=== PATIENT | female | born 1995 ===

== ENCOUNTER 2018-06-24 12:30 | Emergency (ER) | payer MEDICAID, OTHER ==
[2018-06-24 12:31] VITALS: BMI 36.8
[2018-06-24 12:36] VITALS: RESP 18; TEMP 98.6
--- NOTE | 2018-06-24 13:42 | C.PDOC ---
History Of Present Illness 22 year old female presents to the emergency department status-post sustaining a laceration to her right 5th finger on a broken glass at work. She denies weakness or numbness to the area. Time Seen by Provider: 06/24/18 13:21 Chief Complaint (Nursing): Abnormal Skin Integrity History Per: Patient History/Exam Limitations: no limitations Onset/Duration Of Symptoms: Hrs Current Symptoms Are (Timing): Still Present Location Of Injury: Right: Hand (5th digit) Quality Of Symptoms: Other (laceration) Past Medical History Reviewed: Historical Data, Nursing Documentation, Vital Signs Vital Signs: Last Vital Signs Temp 98.6 F 06/24/18 12:34 Pulse 80 06/24/18 15:17 Resp 18 06/24/18 15:17 BP 121/78 06/24/18 15:17 Pulse Ox 99 06/27/18 00:24 - Medical History PMH: No Chronic Diseases Denies: Depression, Diabetes, HTN Surgical History: No Surg Hx - [facility] Procedures EXTRACTION OF POC, LOW CERVICAL, OPEN APPROACH (10/01/17) INTRODUCTION OF OTH HORMONE INTO PERIPH VEIN, PERC APPROACH (10/01/17) INTRODUCTION OF SERUM/TOX/VACCINE INTO MUSCLE, PERC APPROACH (10/01/17) MONITORING OF POC, CARDIAC RATE, ECONOMETRICIAN APPROACH (10/01/17) Family History: States: No Known Family Hx - Social History Hx Alcohol Use: No Hx Substance Use: No - Immunization History Hx Tetanus Toxoid Vaccination: No Hx Influenza Vaccination: No Hx Pneumococcal Vaccination: No Review Of Systems Musculoskeletal: Positive for: Hand Pain (at laceration) Skin: Positive for: Other (laceration) Neurological: Negative for: Weakness, Numbness Physical Exam - Physical Exam Appears: Non-toxic, No Acute Distress Skin: Warm, Dry, Other (1cm laceration to the tip of the right 5th digit that extends to lateral of nail. Clean, linear, not involving the nail. ) Head: Atraumatic, Normacephalic Eye(s): bilateral: Normal Inspection Nose: Normal Extremity: Normal ROM (all extremities), Tenderness (at site of laceration. from of all fingers. strength and sensation intact), Capillary Refill (normal) Neurological/Psych: Oriented x3, Normal Speech, Normal Cognition ED Course And Treatment O2 Sat by Pulse Oximetry: 99 (RA) Progress Note: Plan: Adacel 0.5ml. Bacitracin 1ea TOP. Lidocaine 1%. Tylenol 975mg PO Laceration - Laceration Repair Right 5th Digit Wound Length (In cm): 1 Description Of Wound: Linear Anesthesia: Lidocaine 1% Wound Examination: Irrigated With Saline Wound Closure: Suture (5) Suture Technique And Material Used: Nylon (5-0) Disposition Counseled Patient/Family Regarding: Studies Performed, Diagnosis, Need For Followup - Disposition Disposition: HOME/ ROUTINE Disposition Time: 14:55 Condition: GOOD Additional Instructions: Keep wound clean and dry. Change dressing daily-wash and dry gently with soap and water. watch for any signs of infection such as redness, swelling. pus, If so, return to ER. Otherwise, suture removal in 10 days. Tylenol for pain. Instructions: Laceration Repair With Stitches (DC) Forms: General Discharge Instructions, [facility] (Montenegrin), Work Excuse - Clinical Impression Clinical Impression: Laceration of right little finger - PA / [employer] / Resident Statement MD/DO has reviewed & agrees with the documentation as recorded. - Scribe Statement The provider has reviewed the documentation as recorded by the Scribe (Jose Juan Cuevas) All medical record entries made by the Scribe were at my direction and personally dictated by me. I have reviewed the chart and agree that the record accurately reflects my personal performance of the history, physical exam, medical decision making, and the department course for this patient. I have also personally directed, reviewed, and agree with the discharge instructions and disposition.
[2018-06-24] MEDS ORDERED: Tdap Vaccine 0.5 ml Vial (10-64 yrs) IM ONE ×2 (13:43→14:16)
[2018-06-24] MEDS ORDERED: Lidocaine 1% Inj (20ml) INFIL ONE (13:43)
[2018-06-24] MEDS ORDERED: Lidocaine Hydrochloride 5 ML INJ ONE (13:52)
[2018-06-24] MEDS ORDERED: Bacitracin 500 Units/gm Oint Foilpak UD TOP ONE (14:54)
[2018-06-24] MEDS ORDERED: Bacitracin 500 Units/gm Oint Foilpak UD ONE (15:10)
[2018-06-24 15:17] VITALS: BP 121/78; PULSE 80
[2018-06-27 00:23] VITALS: O2SAT 99
== END 2018-06-24 15:17 | disposition home or self-care (01) ==
LOC: C.ER 12:30
DX: S61.216A Laceration without foreign body of right little finger without damage to nail, initial encounter (principal); W25.XXXA Contact with sharp glass, initial encounter; Y92.89 Other specified places as the place of occurrence of the external cause; Y99.0 Civilian activity done for income or pay